=== PATIENT | female | born 1970 | race Caucasian/White ===

== ENCOUNTER 2016-09-29 14:02 | Emergency (ER) | payer MEDICAID, OTHER ==
[~2016-09-29] VITALS: Ht 157.5 cm; Wt 81.4 kg
[~2016-09-29 14:02] MED LIST: DILT30 PO; KETO10 PO; PRIL20TA2 PO; TRAM50 PO
[2016-09-29 14:11] VITALS: BP 143/84; PULSE 96; RESP 16; TEMP 98.3; O2SAT 97
[2016-09-29] MEDS ORDERED: IBUPROFEN 800 MG TAB PO ONE (14:30)
--- NOTE | 2016-09-29 14:35 | PD ---
HPI Chief Complaint: Injury Time Seen by Provider: 14:31 Travel History International Travel<30 days: No Contact w/Intl Traveler<30days: No Traveled to known affect area: No History of Present Illness HPI Patient is a 46-year-old female who presents emergency for evaluation of left hand and wrist pain. Patient states she fell onto her outstretched hand on Friday night while attempting to get up from a chair, slipping. He denies any head injury or loss of consciousness. Patient states she's been taking ibuprofen, 2 tablets every few hours with no relief of symptoms. Patient states that the swelling has gotten worse today so she presented to the emergency department for evaluation. She denies any head injury or loss of consciousness. Patient rates her pain a 7/10. Last dose of ibuprofen 400 mg was at 8:30 this morning. PFSH Past Medical History Hx Anticoagulant Therapy: No Diabetes: No Diminished Hearing: No GERD: Yes Headaches: Yes Hypertension: Yes Migraines: Yes ?: Not Tubal Ligation: Yes Social History Alcohol Use: Yes (OCC) Tobacco Use: Yes (1PPD) Substance Use: No Allergies-Medications (Allergen,Severity, Reaction): Coded Allergies: No Known Allergies (Verified , 08/14/11) Reported Meds & Prescriptions Reported Meds & Active Scripts Active Flexeril (Cyclobenzaprine HCl) 10 Mg Tab 10 Mg PO TID PRN 7 Days Ibuprofen 800 Mg Tab 800 Mg PO Q6HR PRN Review of Systems Except as stated in HPI: all other systems reviewed are Neg Musculoskeletal: Positive: Myalgias, Arthralgias, Edema, Pain Skin: Positive Change in Pigmentation Physical Exam Narrative GENERAL: Well-nourished, well-developed patient. SKIN: Warm and dry. HEAD: Normocephalic. EYES: No scleral icterus. No injection or drainage. NECK: Supple, trachea midline. No JVD or lymphadenopathy. CARDIOVASCULAR: Regular rate and rhythm without murmurs, gallops, or rubs. RESPIRATORY: Breath sounds equal bilaterally. No accessory muscle use. GASTROINTESTINAL: Abdomen soft, non-tender, nondistended. MUSCULOSKELETAL: No cyanosis, edema noted over the first and second MCP and fingers on the left hand. 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 Sensation is intact, patient has brisk capillary refill in the positive radial pulse. BACK: Nontender without obvious deformity. No CVA tenderness. Data Data Last Documented VS Vital Signs Date Time Temp Pulse Resp B/P Pulse Ox O2 Delivery O2 Flow Rate FiO2 09/29/16 14:11 98.3 96 16 143/84 97 Orders Hand, Complete ([id number]) (09/29/16 ) Wrist, Complete ([id number]) (09/29/16 ) Ibuprofen (Motrin) (09/29/16 14:30) Ice/Cold Pack (09/29/16 14:28) Bandage, Elastic 3" (Omid) Ea (09/29/16 16:31) MDM Medical Decision Making Medical Screen Exam Complete: Yes Emergency Medical Condition: Yes Interpretation(s) Vital Signs Date Time Temp Pulse Resp B/P Pulse Ox O2 Delivery O2 Flow Rate FiO2 09/29/16 14:11 98.3 96 16 143/84 97 Differential Diagnosis Contusion versus fracture versus sprain versus strain versus other Narrative Course Patient is a 46-year-old female who presented to reevaluation of right hand pain after she sustained a mechanical fall 2 days ago. Patient is neurovascularly intact. Patient states the swelling and pain were worse today so she presented to emergency room for evaluation. Imaging was ordered to rule out acute fracture or dislocation. Imaging was negative. Physical examination is consistent with a contusion, patient was encouraged to rest, ice, elevate extremity. She was encouraged to take anti-inflammatory medication as needed and as directed for pain. Patient was provided with an Omid wrap for support and to help control swelling. She was encouraged to follow-up with her primary doctor. Alternatively patient can return to emergency department for any new or worsening symptoms. Patient verbalized understanding of these instructions. Patient is stable for discharge. Diagnosis Primary Impression: Contusion, hand Qualified Code: S60.222A - Contusion of left hand, initial encounter Referrals: Primary Care Physician Patient Instructions: Contusion in Adults (ED), General Instructions Additional Instructions: Follow-up with your primary doctor Rest, ice, elevate extremity Take medications as directed Return to emergency department for any new or worsening symptoms Med/Other Pt SpecificInfo: Prescription(s) given Scripts Cyclobenzaprine (Flexeril)10 Mg Tab10 Mg PO TID PRN (MUSCLE SPASM) 7 Days Ref 0 Prov:Livier Mcclendon 09/29/16 Ibuprofen 800 Mg [id number] Mg PO Q6HR PRN (PAIN) #40 TAB Ref 0 Prov:Livier Mcclendon 09/29/16 Disposition: 01 DISCHARGE HOME Condition: Stable Livier Mcclendon Sep 29, 2016 14:35
--- NOTE | 2016-09-29 16:02 | RADHPO ---
EXAM DATE/TIME: 09/29/2016 15:44 [facility] COMPARISON: No previous studies available for comparison. INDICATIONS : Fell on left hand MEDICAL HISTORY : None. SURGICAL HISTORY : None. ENCOUNTER: Initial ACUITY: 2 days PAIN SCORE: 10/10 LOCATION: Left hand FINDINGS: Three view examination of the left hand demonstrates no soft tissue swelling, dislocation, or fractur e. The carpal bones appear intact. The interphalangeal and metacarpophalangeal joints are intact. Bony mineralization is normal. CONCLUSION: No acute disease. Jonathan Velasco MD on September 29, 2016 at 16:00 Board Certified Radiologist. This report was verified electronically.
[2016-09-29] MEDS ORDERED: CYCL1TAB29 PO (16:33)
[2016-09-29] MEDS ORDERED: IBUP800T23 PO (16:33)
--- NOTE | 2016-09-29 16:53 | RADHPO ---
EXAM DATE/TIME: 09/29/2016 15:39 [facility] COMPARISON: No previous studies available for comparison. INDICATIONS : Fell on left hand, wrist MEDICAL HISTORY : None. SURGICAL HISTORY : None. ENCOUNTER: Initial ACUITY: 2 days PAIN SCORE: 10/10 LOCATION: Left wrist FINDINGS: No definite fracture is seen. The bones and joints appear normally aligned. There is cystic change at the scaphoid. There is some mild cystic change at the distal radius. CONCLUSION: No definite acute abnormality is identified. There is cystic change at the radius and scaphoid. Jonathan Velasco MD on September 29, 2016 at 15:59 Board Certified Radiologist. This report was verified electronically.
== END 2016-09-29 16:55 | disposition home or self-care (01) ==
LOC: PHEFT 14:02
DX: S60.222A Contusion of left hand, initial encounter (principal); R60.0 Localized edema; M25.532 Pain in left wrist; I10 Essential (primary) hypertension; F17.200 Nicotine dependence, unspecified, uncomplicated; Z86.69 Personal history of other diseases of the nervous system and sense organs; Z87.19 Personal history of other diseases of the digestive system; W01.0XXA Fall on same level from slipping, tripping and stumbling without subsequent striking against object, initial encounter
CPT/HCPCS: 73110; 73130; 99283